=== PATIENT | female | born 1975 | race Caucasian/White ===

== ENCOUNTER → 2018-01-14 | Outpatient (CLI) | payer OTHER ==
[~2018-01-14] MED LIST: CYCL10 PO; DIAZ5; FLUO20 PO; MELA3; OXYACE5T PO; PRE NATAL VITS; ZOLP10 PO
== END | disposition home or self-care (01) ==
LOC: PLD 07:58 → LAB SHORT 07:58
DX: D48.5 Neoplasm of uncertain behavior of skin (principal)
CPT/HCPCS: 88305

== ENCOUNTER 2018-01-22 12:18 | Day surgery (SDC) | payer OTHER ==
[~2018-01-22] VITALS: Ht 167.6 cm; Wt 61.0 kg
== END 2018-01-22 16:50 | disposition home or self-care (01) ==
LOC: ORSCSDS 12:18
PROVIDERS: Orthopaedic Surgery
PROC: 0LB14ZZ Excision of Right Shoulder Tendon, Percutaneous Endoscopic Approach (ICD-10-PCS; principal; 2018-01-22 14:00)
PROC: 0RNJ4ZZ Release Right Shoulder Joint, Percutaneous Endoscopic Approach (ICD-10-PCS; principal; 2018-01-22 14:00)
DX: M75.111 Incomplete rotator cuff tear or rupture of right shoulder, not specified as traumatic (principal); M75.51 Bursitis of right shoulder; M75.21 Bicipital tendinitis, right shoulder; M75.31 Calcific tendinitis of right shoulder
CPT/HCPCS: C1713; J0171; J0690; J1100; J1885; J2250; J2405; J2765; J3010; J7120

== ENCOUNTER → 2018-03-27 | Outpatient (CLI) | payer OTHER | END | disposition home or self-care (01) | LOC: OLS 10:43 → LAB SHORT 10:43 | PROVIDERS: Obstetrics & Gynecology Gynecology | DX: Z12.72 Encounter for screening for malignant neoplasm of vagina (principal) | CPT/HCPCS: 87624; G0123 ==

== ENCOUNTER → 2019-07-27 | Outpatient (CLI) | payer BC ==
[2019-07-29 16:07] LABS: HPV 16 Negative (Negative); HPV 18 Negative (Negative); HPV OTHER HR TYPES Negative (Negative)
== END | disposition home or self-care (01) ==
LOC: LAB 10:21 → LAB SHORT 10:21
PROVIDERS: Obstetrics & Gynecology Gynecology
DX: Z12.72 Encounter for screening for malignant neoplasm of vagina (principal)
CPT/HCPCS: 87624; G0123

== ENCOUNTER 2021-01-26 06:26 | Day surgery (SDC) | payer BC ==
[~2021-01-26] VITALS: Ht 165.1 cm; Wt 64.3 kg
--- NOTE | 2021-01-26 07:59 | NUR ---
01/26/21 0759 Krystina Michelle BUPIVACAINE 0.5% 30 MLS MIXED WITH EPI 0.15 MLS TO CONSITUTE BUPIVACAINE 0.5% 1:200,000 FOR INJECTION AT OPSITE BY DR. BATRES. 30MLS OF BUPIVACAINE 0.5% 1:200,000 INJECTED AT OPSTIE BY DR. BATRES.
== END 2021-01-26 09:48 | disposition home or self-care (01) ==
LOC: ORSCSDS 06:26
PROVIDERS: Podiatrist Foot & Ankle Surgery
PROC: 0SQN0ZZ Repair Left Metatarsal-Phalangeal Joint, Open Approach (ICD-10-PCS; principal; 2021-01-26 07:30)
PROC: 0JBR0ZX Excision of Left Foot Subcutaneous Tissue and Fascia, Open Approach, Diagnostic (ICD-10-PCS; principal; 2021-01-26 07:30)
PROC: 0QBP0ZZ Excision of Left Metatarsal, Open Approach (ICD-10-PCS; principal; 2021-01-26 07:30)
DX: S99.922D Unspecified injury of left foot, subsequent encounter (principal); G57.62 Lesion of plantar nerve, left lower limb; M77.42 Metatarsalgia, left foot; Z79.899 Other long term (current) drug therapy
CPT/HCPCS: C1713; J0171; J0690; J1100; J2250; J2405; J2704; J3010; J7120

== ENCOUNTER → 2021-11-28 | Outpatient (CLI) | payer BC | END | disposition home or self-care (01) | LOC: PLD 11:22 → LAB SHORT 11:22 | DX: C44.519 Basal cell carcinoma of skin of other part of trunk (principal); D22.5 Melanocytic nevi of trunk | CPT/HCPCS: 88305 ==

== ENCOUNTER → 2022-02-11 | Outpatient (CLI) | payer BC | END | disposition home or self-care (01) | LOC: PLD 14:52 → LAB SHORT 14:52 | DX: D22.5 Melanocytic nevi of trunk (principal) | CPT/HCPCS: 88305 ==

== ENCOUNTER 2023-08-12 11:39 | Day surgery (SDC) | payer BC ==
[~2023-08-12] VITALS: Ht 167.6 cm; Wt 68.2 kg
[2023-08-12] MEDS ORDERED: ZOLP5 (11:53)
[2023-08-12] MEDS ORDERED: LORA1SY (11:54)
[2023-08-12 16:01] VITALS: BP 99/65
--- NOTE | 2023-08-12 16:03 | NUR ---
08/12/23 1603 Apurva Puente IV, DC'[facility] WNL, PT TOLERATED WELL. CATH INTACT.
== END 2023-08-12 13:40 | disposition home or self-care (01) ==
LOC: ORSCSDS 11:39
PROVIDERS: Surgery
PROC: 0DJD8ZZ Inspection of Lower Intestinal Tract, Via Natural or Artificial Opening Endoscopic (ICD-10-PCS; principal; 2023-08-12 13:00)
DX: Z12.11 Encounter for screening for malignant neoplasm of colon (principal); Z83.71 Family history of colonic polyps; K64.4 Residual hemorrhoidal skin tags; Z79.899 Other long term (current) drug therapy
CPT/HCPCS: J2250; J2704; J7120